=== PATIENT | female | born 1940 | race Caucasian/White ===

== ENCOUNTER 2019-01-14 06:38 | Day surgery (SDC) | payer BC ==
[2019-01-14] MEDS ORDERED: SEVOFLURANE 250 ML BOTTLE IH ONE (06:39)
[2019-01-14] MEDS ORDERED: LIDOCAINE HCL-MPF 1% 5 ML VIAL IJ ONE (06:39)
[2019-01-14] MEDS ORDERED: PROPOFOL 200 MG/20 ML BOTTLE IV ONE (06:39)
[2019-01-14] MEDS ORDERED: IV NORMAL SALINE 1000 ML BAG IV ONE (06:39)
[2019-01-14] MEDS ORDERED: POLYMYXIN B SULFATE 500,000 UNITS, BACITRACIN 50,000 UNITS, NORMAL SALINE 20 ML MC ONE ×3 (07:30)
[2019-01-14] MEDS ORDERED: VANCOMYCIN 1000 MG VIAL ONE (08:03)
[2019-01-14] MEDS ORDERED: BACITRACIN ZINC OINT 15 GM TUBE ONE (08:03)
[2019-01-14] MEDS ORDERED: FENTANYL CITRATE 100 MCG/2 ML AMPUL ONE (08:36)
[2019-01-14] MEDS ORDERED: CLINDAMYCIN PHOSPHATE 600 MG/4 ML VIAL ONE (08:44)
[2019-01-14] MEDS ORDERED: BUPIVACAINE PF 0.5% 30 ML VIAL ONE ×2 (09:14→09:37)
[2019-01-14] MEDS ORDERED: LIDOCAINE HCL 1% 20 ML VIAL ONE ×2 (09:14→09:37)
== END 2019-01-14 11:55 | disposition home or self-care (01) ==
LOC: DS 06:38
PROVIDERS: ATTEND Orthopaedic Surgery Sports Medicine
DX: M21.611 Bunion of right foot (principal); M20.41 Other hammer toe(s) (acquired), right foot; I10 Essential (primary) hypertension; M19.90 Unspecified osteoarthritis, unspecified site; F15.90 Other stimulant use, unspecified, uncomplicated; Z87.440 Personal history of urinary (tract) infections; Z72.89 Other problems related to lifestyle; Z90.710 Acquired absence of both cervix and uterus; Z98.890 Other specified postprocedural states; Z88.0 Allergy status to penicillin; Z88.1 Allergy status to other antibiotic agents; Z88.2 Allergy status to sulfonamides; Z79.899 Other long term (current) drug therapy
CPT/HCPCS: 28285; 28292; C1713; J3010; J3490 ×8; J7120; A4649; A4663; J3370; J7030